=== PATIENT | male | born 1950 | race Caucasian/White ===

== ENCOUNTER → 2019-08-17 | Outpatient (REF) | payer MEDICARE, BC | LOC: M SFHCWAGY 12:08 | PROVIDERS: ATTEND Surgery | DX: L97.514 Non-pressure chronic ulcer of other part of right foot with necrosis of bone (principal); E11.621 Type 2 diabetes mellitus with foot ulcer | CPT/HCPCS: 11042; 87070; 87077; 87186; 88304; G0463 ==